=== PATIENT | male | born 1980 | race Caucasian/White ===

== ENCOUNTER 2020-05-14 15:25 | Outpatient (REF) | payer OTHER, SELFPAY | END 2020-05-14 15:26 | disposition home or self-care (01) | LOC: HO.LAB 15:25 | PROVIDERS: Visit Provider Internal Medicine | DX: Z20.828 Contact with and (suspected) exposure to other viral communicable diseases (principal) | CPT/HCPCS: 87635 ==

== ENCOUNTER 2021-07-26 20:17 | Emergency (ER) | payer OTHER, SELFPAY ==
[2021-07-26 21:37] VITALS: BP 136/83; PULSE 90; RESP 18; TEMP 36.7; O2SAT 95; BMI 35.2
--- NOTE | 2021-07-26 21:47 | ED_ITS ---
HPI - General Adult General Chief complaint: General Medical Stated complaint: flu like symptoms Source: patient Mode of arrival: ambulatory Limitations: no limitations History of Present Illness HPI narrative: Exposed to nephew who was positive for covid. nasal congesion. patient denies any other complaints. patient wants covid testing Related Data Allergies Allergy/AdvReac Type Severity Reaction Status Date / Time No Known Allergies Allergy Verified 07/26/21 21:37 Review of Systems Review of Systems: Yes all other systems are reviewed and are negative Constitutional: Constitutional: Reports as per HPI and Reports no additional constitutional complaints Eyes: Eyes: Reports as per HPI and Reports no additional eye complaints ENT: Reports system reviewed and no additional complaints, except as documented, Reports as per HPI and Reports nasal congestion Cardiovascular: Cardiovascular: Reports as per HPI and Reports no additional cardiovascular complaints Respiratory: Respiratory: Reports as per HPI and Reports no additional respiratory complaints Gastrointestinal: Gastrointestinal: Reports as per HPI and Reports no additional gastrointestinal complaints Musculoskeletal: Musculoskeletal: Reports no additional musculoskeletal complaints and Reports as per HPI Integumentary/Breasts: Skin/Breast: Reports system reviewed and no additional complaints, except as docu and Reports as per HPI Neurologic: Reports system reviewed and no additional complaints, except as documented and Reports as per HPI Psychiatric: Psychiatric: Reports no additional psychiatric complaints and Reports as per HPI [facility] Past Medical History Medical History (Updated 07/27/21 @ 00:01 by Charlette Darosales) No pertinent past medical history Social History Social History Advance Directives: No Advance Directives Information Provided: No Physical Exam Vital Signs: Vital Signs: Last Vital Signs Temp 98.0 F 07/26/21 21:37 Pulse 90 07/26/21 21:37 Resp 18 07/26/21 21:37 BP 136/83 07/26/21 21:37 Pulse Ox 95 07/26/21 21:37 BMI result Body Mass Index 35.2 Const: General: cooperative, healthy appearing, comfortable, no acute distress, well developed, alert, awake and Physically active Orientation/consciousness: patient oriented x3 HENMT: Head: Yes normal to inspection, Yes No palpable skull fracture present, Yes normocephalic and Yes atraumatic General nose exam: Normal external nose present and Normal nares present Eyes: General: appearance normal, both eyes and all related structures Neck: Neck: Yes normal visual inspection, Yes full ROM, Yes no lymphadenopathy, Yes no meningeal signs, Yes trachea midline, Yes supple, No anterior neck swelling and No tender Chest: Chest palpation & inspection: normal inspection of the chest and normal palpation of entire chest wall Resp: Effort & Inspection: normal respiratory effort and able to speak in complete sentences Auscultation: clear to auscultation bilaterally Cardio: Jugular venous distension: no JVD Heart sounds: S1 normal heart sound present and S2 normal heart sound present GI: Inspection: Yes normal to inspection and No abdominal wall ecchymosis Palpation (GI): Soft to palpation, not firm, nontender, no guarding and not rigid : General: No CVA tenderness and Yes no CVA tenderness Back/Spine/Pelvis: Back: no CVA tenderness, No CVA tenderness and No back tenderness Skin: General skin exam: no rashes or lesions noted and elasticity normal Neuro: General: patient oriented x3, gait normal, no meningeal signs and CN's II-XI intact bilaterally Cranial nerves: Yes CN's II-XII intact bilaterally Extrem: General: Yes normal to inspection and Yes full ROM Psych: Appearance: grossly normal, well kempt and not disheveled Course Course Course Narrative: Patient is well appearing. Covid ordered Reevaluation(s) Reevaluation #1: patient covid negative. Medical Decision Making MDM Narrative Medical decision making narrative: Viral syndrome Lab Data Labs: Lab Results 07/26/21 Range/Units 22:00 COVID-19 ([facility]) Negative (Negative) COVID-19 Clin Com See Note Discharge Plan Discharge Clinical Impression: Viral syndrome Patient Disposition: Home, Self-Care Instructions: Viral Syndrome (ED) Additional Instructions: Your covid swab came back negative. recommend re-testing in 5 days if symptoms worsen. Return to the ED for any chest pain, shortness of breath, fever, chills, weakness, dizziness, or any other concerning symptoms. Please follow up with PCP. Stand Alone Forms: Work/School Release Discharge Date/Time: 07/26/21 23:29 Print Language: Vietnamese
[2021-07-26 22:22] LABS: COVID-19 Test Negative (Negative)
--- NOTE | 2021-07-26 23:28 | PC.NURSE ---
discharged by provider Neils. Unable to check patient out of system but discharged him with paperwork
== END 2021-07-26 23:29 | disposition home or self-care (01) ==
PROVIDERS: Physician Assistant; Emergency Provider Emergency Medicine Emergency Medical Services
DX: B34.9 Viral infection, unspecified (principal); Z20.822 Contact with and (suspected) exposure to COVID-19
CPT/HCPCS: 36415; 87635; 99282; 99283

== ENCOUNTER 2022-08-16 16:09 | Emergency (ER) | payer OTHER, SELFPAY ==
[2022-08-16 16:39] VITALS: BP 115/70; PULSE 102; RESP 16; TEMP 37; O2SAT 95; BMI 36.3
--- NOTE | 2022-08-16 16:44 | ED_ITS ---
HPI - URI/Sore Throat General Chief Complaint: Upper Respiratory Symptoms Stated Complaint: ear pain Time Seen by Provider: 08/16/22 19:31 Related Data Previous Rx's Medication Instructions Recorded azithromycin 250 mg tablet See Rx Instructions PO .COMPLEX 08/16/22 upper resp infection #6 tabs ibuprofen 400 mg tablet 400 mg PO Q6H PRN pain #20 tabs 08/16/22 Allergies Allergy/AdvReac Type Severity Reaction Status Date / Time No Known Allergies Allergy Verified 07/26/21 21:37 [facility] Past Medical History Medical History No pertinent past medical history Social History Social History Advance Directives: No Advance Directives Information Provided: Yes Physical Exam Vital Signs: Vital Signs: Last Vital Signs Temp 98.6 F 08/16/22 16:39 Pulse 102 H 08/16/22 16:39 Resp 16 08/16/22 16:39 BP 115/70 08/16/22 16:39 Pulse Ox 95 08/16/22 16:39 O2 Del Method 08/16/22 16:39 BMI result Body Mass Index 36.3 Course Course Course Narrative: RME: Patient presents to the ED for right ear pain and coughing/bodyaches, chills.. patient states he tested for covid three times and was negatve. lungs are clear. RIght ear exam shows TM erythema. Medical Decision Making Lab Data Labs: Lab Results 08/16/22 Range/Units 16:51 Influenza Type A (PCR) NEGATIVE (Negative) Influenza Type B (PCR) NEGATIVE (Negative) RSV RNA Qual (PCR) NEGATIVE (Negative) SARS-CoV-2 RNA (RT-PCR) POSITIVE A (Negative) Discharge Plan Discharge Clinical Impression: COVID-19, Otitis media Patient Disposition: Home, Self-Care Instructions: Ear Infection (ED), COVID-19 (Coronavirus Disease 2019) (ED) Prescriptions: New ibuprofen 400 mg tablet 400 mg PO Q6H PRN (Reason: pain) Qty: 20 0RF azithromycin 250 mg tablet See Rx Instructions .ROUTE .COMPLEX Qty: 6 0RF Rx Instructions: take 500 mg today (day 1), then 250 mg for 4 days (days 2-5) Referrals: Physician,Unknown J [Primary Care Provider] - 08/18/22 Stand Alone Forms: Work/School Release Interventions: ED Discharge Assessment Last Done: 08/16/22 20:59 Discharge Date/Time: 08/16/22 20:59
[2022-08-16 18:04] LABS: Influenza A PCR NEGATIVE (Negative); Influenza B PCR NEGATIVE (Negative); Resp Syncy Virus RNA Qual PCR NEGATIVE (Negative); SARS COV2 PCR INHOUSE POSITIVE (Negative)
--- NOTE | 2022-08-16 20:25 | ED.URI ---
HPI - URI/Sore Throat General Chief Complaint: Upper Respiratory Symptoms Stated Complaint: ear pain Time Seen by Provider: 08/16/22 19:31 History of Present Illness HPI Narrative: patient is 42 years old presents today with coughing congestion ongoing since last . Also having earache the last 3 days. Positive generalized malaise weakness had a negative COVID test x2. Patient presents to the ED for further evaluation. Related Data Previous Rx's Medication Instructions Recorded ibuprofen 400 mg tablet 400 mg PO Q6H PRN pain #20 tabs 08/16/22 Allergies Allergy/AdvReac Type Severity Reaction Status Date / Time No Known Allergies Allergy Verified 07/26/21 21:37 Review of Systems Review of Systems: Positive right earache positive coughing congestion upper respiratory symptoms positive generalized malaise Yes all other systems are reviewed and are negative [facility] Past Medical History Medical History No pertinent past medical history Social History Social History Advance Directives: No Advance Directives Information Provided: Yes Physical Exam Vital Signs: Vital Signs: Last Vital Signs Temp 98.6 F 08/16/22 16:39 Pulse 102 H 08/16/22 16:39 Resp 16 08/16/22 16:39 BP 115/70 08/16/22 16:39 Pulse Ox 95 08/16/22 16:39 O2 Del Method 08/16/22 16:39 BMI result Body Mass Index 36.3 Appearance: Alert. Oriented X3. No acute distress. Eyes: Pupils equal, round and reactive to light. ENT: Pharynx normal. TM on the right side is bulging. Red inflamed. Neck: Normal inspection. Neck supple. No lymph nodes noted. No crepitus CVS: Normal heart rate and rhythm. Pulses normal. Normal S1 and S2 Respiratory: No respiratory distress. Breath sounds normal. No Wheezing. No rales Abdomen: Soft and nontender. No rigidity. No distention. good BS x4 Skin: Skin warm and dry. Normal skin color. Normal skin turgor. Extremities: No lower extremity edema. Neurovascular intact to all extremities. No Lacerations. No Rash Neuro: Oriented X 3. No motor deficit. No sensory deficit. Moving all extermities. No slurred speech Medical Decision Making Differential Diagnosis Patient's TM on the right side consistent with having otitis media. There is no mastoid tenderness there is no malignant otitis media noted. Will start patient on Z-Greg Motrin for pain. Positive coughing upper respiratory symptoms. Cannot rule out the possibility of pneumonia, flu, RSV. A swab was done. Patient's test came back positive for COVID. He is vaccinated x2. Symptoms ongoing for 5 days. I see no points of starting patient paxlovid at this time. Will discharge patient home. Motrin for pain. Patient should stay out from work for a total of 8 days. He is in stable condition. Lab Data MDM Lab Attestation statement: I reviewed the patient's lab results. Labs: Lab Results 08/16/22 Range/Units 16:51 Influenza Type A (PCR) NEGATIVE (Negative) Influenza Type B (PCR) NEGATIVE (Negative) RSV RNA Qual (PCR) NEGATIVE (Negative) SARS-CoV-2 RNA (RT-PCR) POSITIVE A (Negative) Prescription Management I considered prescription management with: Pain Medication and Antibiotic Social Determinants Patient?s care significantly limited by Social Determinants of Health including: Problems related to employment Discharge Plan Discharge Clinical Impression: COVID-19, Otitis media Patient Disposition: Home, Self-Care Instructions: Ear Infection (ED), COVID-19 (Coronavirus Disease 2019) (ED) Prescriptions: New ibuprofen 400 mg tablet 400 mg PO Q6H PRN (Reason: pain) Qty: 20 0RF Referrals: Physician,Unknown J [Primary Care Provider] - 08/18/22 Stand Alone Forms: Work/School Release
== END 2022-08-16 20:59 | disposition home or self-care (01) ==
PROVIDERS: Physician Assistant; Emergency Provider Emergency Medicine Emergency Medical Services
DX: M79.10 Myalgia, unspecified site (principal); R05.9 Cough, unspecified; H92.01 Otalgia, right ear; Z20.822 Contact with and (suspected) exposure to COVID-19; Z20.828 Contact with and (suspected) exposure to other viral communicable diseases
CPT/HCPCS: 0241U; 99282; 99283